=== PATIENT | male | born 1965 | race Caucasian/White ===

== ENCOUNTER 2017-02-16 06:28 | Day surgery (SDC) | payer MEDICARE, BC ==
[2017-02-14 16:24] LABS: HEMATOCRIT 39.3 % (40.0-51.0); HEMOGLOBIN 13.1 g/dL (13.6-17.8)
[~2017-02-16] VITALS: Ht 142.2 cm; Wt 52.2 kg
[~2017-02-16 06:28] MED LIST: ACTONEL; ACTONEL35 MG PO; CARDU2 PO; FISH-EPA1000 MG PO; FLOMAX4 PO; FOLATE PO; FOLIC ACID; MULTIVITAMI1 PO; NASONEX NAS; SEROQUEL1C PO; SEROQUEL50 MG PO; SEVERAL VITS PO; SYN1 PO; SYN112 PO; TRICOR145 PO; VITAMIN D31000 UNIT PO; ZETIA PO; ZOCOR20 PO; ZOL100 PO
== END 2017-02-16 13:05 | disposition home or self-care (01) ==
LOC: SDC 06:28
PROVIDERS: Ophthalmology
PROC: 08RJ3JZ Replacement of Right Lens with Synthetic Substitute, Percutaneous Approach (ICD-10-PCS; principal; 2017-02-16 09:00)
DX: H25.11 Age-related nuclear cataract, right eye (principal); E03.9 Hypothyroidism, unspecified; F32.9 Major depressive disorder, single episode, unspecified; M81.0 Age-related osteoporosis without current pathological fracture; E78.5 Hyperlipidemia, unspecified; Q90.9 Down syndrome, unspecified; Z88.0 Allergy status to penicillin; Z88.1 Allergy status to other antibiotic agents; Z98.890 Other specified postprocedural states
CPT/HCPCS: 85014; 85018; 93005; J2370; J2405; J3010